=== PATIENT | male | born 1990 | race Caucasian/White ===

== ENCOUNTER 2017-08-18 18:36 | Emergency (ER) | payer SELFPAY ==
[2017-08-18] MEDS ORDERED: ONDANSETRON HCL INJ/PF 4 MG/2 ML SDV IV ONE (20:15)
[2017-08-18] MEDS ORDERED: KETOROLAC TROMETHAMINE INJ/PF 30 MG/1 ML SDV IV ONE (20:15)
[2017-08-18] MEDS ORDERED: NORMAL SALINE 1000 ML 1,000 ML IV ONE (20:16)
--- NOTE | 2017-08-18 20:17 | ER Document Report ---
ED GI/ - General Chief Complaint: Abdominal Pain Stated Complaint: ABDOMINAL PAIN Time Seen by Provider: 08/18/17 19:09 Notes: Patient is a 26-year-old male comes emergency department for chief complaint of pain in his right upper abdomen, pain is intermittent, it is worse with food, he has vomited several times since yesterday. He states he is actually had this over the past couple of years several times and he is unsure of the problem. He takes no daily medications, has had no surgeries. He denies smoking, he drinks occasional alcohol, he denies any alcohol in the past several days. TRAVEL OUTSIDE OF THE [place] IN LAST 30 DAYS: No - Related Data Allergies/Adverse Reactions: No Known Allergies Allergy (Unverified 08/18/17 18:42) Past Medical History - General Information source: Patient - Social History Smoking Status: Never Smoker Frequency of alcohol use: None Drug Abuse: None Lives with: Family Family History: Reviewed & Not Pertinent Patient has suicidal ideation: No Patient has homicidal ideation: No Renal/ Medical History: Denies: Hx Peritoneal Dialysis Surgical Hx: Negative - Immunizations Immunizations up to date: Yes Hx Diphtheria, Pertussis, Tetanus Vaccination: Yes Review of Systems - Review of Systems Constitutional: No symptoms reported EENT: No symptoms reported Cardiovascular: No symptoms reported Respiratory: No symptoms reported Gastrointestinal: See HPI Genitourinary: No symptoms reported Male Genitourinary: No symptoms reported Musculoskeletal: No symptoms reported Skin: No symptoms reported Hematologic/Lymphatic: No symptoms reported Neurological/Psychological: No symptoms reported Physical Exam - Vital signs Vitals: Temp Pulse Resp BP Pulse Ox 99.1 F 96 12 146/93 H 97 08/18/17 18:40 08/18/17 18:40 08/18/17 18:40 08/18/17 18:40 08/18/17 18:40 Interpretation: Normal - General General appearance: Appears well, Alert In distress: None - HEENT Head: Normocephalic, Atraumatic Eyes: Normal Pupils: PERRL - Respiratory Respiratory status: No respiratory distress Chest status: Nontender Breath sounds: Normal Chest palpation: Normal - Cardiovascular Rhythm: Regular. No: Tachycardia Heart sounds: Normal auscultation, S1 appreciated, S2 appreciated Murmur: No - Abdominal Inspection: Normal Distension: No distension Bowel sounds: Normal Tenderness: Tender - Generalized upper abdominal tenderness, no guarding, no rigidity, no rebound tenderness Organomegaly: No organomegaly - Back Back: Normal, Nontender - Extremities General upper extremity: Normal inspection, Nontender, Normal color, Normal ROM , Normal temperature General lower extremity: Normal inspection, Nontender, Normal color, Normal ROM , Normal temperature, Normal weight bearing. No: Rodney's sign - Neurological Neuro grossly intact: Yes Cognition: Normal Orientation: AAOx4 [place] Coma Scale Eye Opening: Spontaneous Gus Coma Scale Verbal: Oriented Gus Coma Scale Motor: Obeys Commands [place] Coma Scale Total: 15 Speech: Normal Motor strength normal: LUE, RUE, LLE, RLE Sensory: Normal - Psychological Associated symptoms: Normal affect, Normal mood - Skin Skin Temperature: Warm Skin Moisture: Dry Skin Color: Normal Course - Re-evaluation Re-evalutation: Patient with minimal tenderness on abdominal evaluation. No guarding. CBC unremarkable, chemistry shows somewhat elevated liver enzymes but normal alkaline phosphate, normal bilirubin, normal lipase. Ultrasound showing fatty infiltration of the liver and cholelithiasis without any evidence of infection or obstruction. Patient is states that his symptoms are actually gone away and he just wants to know what the problem is. He is eating without any difficulty. I discussed the ultrasound in detail. Recommendation is for patient to have surgical clinic follow-up for evaluation and management of cholelithiasis, discussed return precautions in detail with patient and family member, they state understanding and agreement. - Vital Signs Vital signs: Temp Pulse Resp BP Pulse Ox 98.5 F 74 16 124/74 94 08/18/17 22:04 08/18/17 22:04 08/18/17 22:04 08/18/17 22:04 08/18/17 22:04 - Laboratory Result Diagrams: 08/18/17 20:05 08/18/17 20:05 Laboratory results interpreted by me: 08/18/17 20:05 Sodium 145.9 H AST 88 H ALT 165 H Discharge - Discharge Clinical Impression: Upper abdominal pain Cholelithiasis Qualifiers: Cholelithiasis location: gallbladder Cholecystitis presence: without cholecystitis Biliary obstruction: without biliary obstruction Qualified Code(s) : K80.20 - Calculus of gallbladder without cholecystitis without obstruction Condition: Stable Disposition: HOME, SELF-CARE Additional Instructions: You do have gallstones. This is most likely the cause of your intermittent symptoms. Eat a low-fat diet, follow-up closely with the surgical clinic for additional management (see referral listed, call the number). Return to the emergency department if he develop any concerning symptoms including severe pain that will not go away, vomiting, fever, inability to eat, or any other concerning symptoms. You also have some developed fatty substance in your liver, follow-up with primary care for additional management of this. Forms: Return to Work, Treatment of Relative/Child Referrals: [facility] [Provider Group] - 08/21/17
[2017-08-18 20:25] LABS: ABSOLUTE BASOPHILS # (AUTO) 0.1 10^3/uL (0.0-0.2); ABSOLUTE EOSINOPHILS # (AUTO) 0.4 10^3/uL (0.0-0.6); ABSOLUTE LYMPHOCYTES (AUTO) 2.8 10^3/uL (0.5-4.7); ABSOLUTE MONOCYTES (AUTO) 0.4 10^3/uL (0.1-1.4); ABSOLUTE NEUT (AUTO) 4.4 10^3/uL (1.7-8.2); BASOPHILS % (AUTO) 0.9 % (0-2); EOSINOPHILS % (AUTO) 4.8 % (0-6); HEMOGLOBIN 14.6 g/dL (13.5-17.0); HGB HCT DIFFERENCE 0.8; LYMPHOCYTES % (AUTO) 34.6 % (13-45); MEAN CORPUSCULAR HEMOGLOBIN 28.2 pg (27.0-33.4); MEAN CORPUSCULAR VOLUME 83 fl (80-97); MONOCYTES % (AUTO) 5.2 % (3-13); RED BLOOD COUNT 5.18 10^6/uL (4.35-5.55); RED CELL DISTRIBUTION WIDTH 13.6 % (11.5-14.0); SEGMENTED NEUTROPHILS % (AUTO) 54.5 % (42-78); WHITE BLOOD COUNT 8.1 10^3/uL (4.0-10.5)
[2017-08-18 20:46] LABS: ALANINE AMINOTRANSFERASE 165 U/L (21-72); ALBUMIN 4.5 g/dL (3.5-5.0); ALKALINE PHOSPHATASE 75 U/L (38-126); ANION GAP 13 (5-19); ASPARTATE AMINO TRANSFERASE 88 U/L (17-59); BILIRUBIN,DIRECT 0.3 mg/dL (0.0-0.4); BILIRUBIN,TOTAL 0.4 mg/dL (0.2-1.3); BLOOD UREA NITROGEN 11 mg/dL (7-20); CALCIUM 9.6 mg/dL (8.4-10.2); CARBON DIOXIDE 27 mmol/L (22-30); CHLORIDE 106 mmol/L (98-107); CREATININE RESULT 1.01 mg/dL (0.52-1.25); GLUCOSE 105 mg/dL (75-110); LIPASE 68.4 U/L (23-300); POTASSIUM 3.9 mmol/L (3.6-5.0); SODIUM 145.9 mmol/L (137-145); TOTAL PROTEIN 7.3 g/dL (6.3-8.2)
--- NOTE | 2017-08-18 21:04 | RADIOLOGY REPORT (SQ) ---
EXAM DESCRIPTION: U/S ABDOMEN LIMITED W/O DOP COMPLETED DATE/TIME: 08/18/2017 8:54 pm REASON FOR STUDY: ruq pain, vomiting COMPARISON: None. TECHNIQUE: Dynamic and static grayscale images acquired of the abdomen and recorded on PACS. Additio nal selected color Doppler and spectral images recorded. LIMITATIONS: None. FINDINGS: PANCREAS: No masses. No peripancreatic edema or fluid collections. LIVER: Echotexture is coarse with increased echogenicity consistent with fatty infiltration. LIVER VASCULATURE: Normal directional flow of the main portal vein and hepatic veins. GALLBLADDER: Gallstone(s). No pericholecystic fluid. No wall thickening. ULTRASOUND-DETECTED LICEA'S SIGN: Negative. INTRAHEPATIC DUCTS AND COMMON DUCT: CBD and intrahepatic ducts normal caliber. No filling defects. INFERIOR VENA CAVA: Normal flow. AORTA: No aneurysm. RIGHT KIDNEY: Normal size. Normal echogenicity. No solid or suspicious masses. No hydronephrosis. No calcifications. PERITONEAL AND RIGHT PLEURAL SPACE: No ascites or effusions. OTHER: No other significant finding. IMPRESSION: FATTY INFILTRATION OF THE LIVER. CHOLELITHIASIS. OTHERWISE NORMAL RIGHT UPPER QUADRANT ULTRASOUND. TECHNICAL DOCUMENTATION: JOB ID: [id number] [employer]- All Rights Reserved
[2017-08-18] MEDS ORDERED: HYDROCODONE/ACETAMINOPHEN 5-325 MG 6 TAB/DSPK PO PRN (21:27)
[2017-08-18 22:05] VITALS: BP 124/74
== END 2017-08-18 22:07 | disposition home or self-care (01) ==
LOC: ER 18:36
DX: K80.20 Calculus of gallbladder without cholecystitis without obstruction (principal); R10.10 Upper abdominal pain, unspecified; R10.11 Right upper quadrant pain
CPT/HCPCS: 99284; 96361; 96374; 96375; 36415; 83690; 85025; 80053; 76705; J1885; J2405; J7030

== ENCOUNTER 2017-08-30 08:46 | Observation (INO) | payer MEDICAID ==
[~2017-08-30 08:46] MED LIST: ROCURONIUM BROMIDE INJ 50 MG/5 ML VIAL IV ONE; SUCCINYLCHOLINE CHLORIDE INJ 200 MG/10 ML VIAL ONE
--- NOTE | 2017-08-30 09:22 | ER Document Report ---
ED Medical Screen (RME) - General Chief Complaint: Abdominal Pain Stated Complaint: ABDOMINAL PAIN Time Seen by Provider: 08/30/17 09:21 Notes: Patient states he was seen here recently and diagnosed with gallstones. He states the pain is now increased. He is also having vomiting. He also states that he has dysuria. He states due to insurance he was unable to follow-up with surgery. TRAVEL OUTSIDE OF THE [place] IN LAST 30 DAYS: No - Related Data Allergies/Adverse Reactions: No Known Allergies Allergy (Verified 08/30/17 09:11) Past Medical History - Social History Chew tobacco use (# tins/day): No Frequency of alcohol use: None Drug Abuse: None Renal/ Medical History: Denies: Hx Peritoneal Dialysis Past Surgical History: Reports: Hx Appendectomy - Immunizations Immunizations up to date: Yes Hx Diphtheria, Pertussis, Tetanus Vaccination: Yes History of Influenza Vaccine for 08/2017 - 01/2018 Season: No Physical Exam - Vital signs Vitals: Resp 18 08/30/17 09:15 Course - Vital Signs Vital signs: Temp Pulse Resp BP Pulse Ox 18 08/30/17 09:15
[2017-08-30] MEDS ORDERED: NORMAL SALINE 1000 ML 1,000 ML IV ONE ×2 (09:37→10:57)
[2017-08-30 10:49] LABS: ABSOLUTE BASOPHILS # (AUTO) 0.1 10^3/uL (0.0-0.2); ABSOLUTE EOSINOPHILS # (AUTO) 0.3 10^3/uL (0.0-0.6); ABSOLUTE LYMPHOCYTES (AUTO) 2.7 10^3/uL (0.5-4.7); ABSOLUTE NEUT (AUTO) 12.7 10^3/uL (1.7-8.2); BASOPHILS % (AUTO) 0.5 % (0-2); EOSINOPHILS % (AUTO) 1.6 % (0-6); HEMATOCRIT 38.2 % (37.9-51.0); HEMOGLOBIN 13.1 g/dL (13.5-17.0); HGB HCT DIFFERENCE 1.1; LYMPHOCYTES % (AUTO) 16.3 % (13-45); MEAN CORPUSCULAR HEMOGLOBIN 28.2 pg (27.0-33.4); MEAN CORPUSCULAR HGB CONC 34.2 g/dL (32.0-36.0); MEAN CORPUSCULAR VOLUME 82 fl (80-97); RED BLOOD COUNT 4.64 10^6/uL (4.35-5.55); RED CELL DISTRIBUTION WIDTH 13.6 % (11.5-14.0); SEGMENTED NEUTROPHILS % (AUTO) 75.6 % (42-78); WHITE BLOOD COUNT 16.8 10^3/uL (4.0-10.5)
[2017-08-30 10:51] LABS: APPEARANCE,URINE SLIGHTLY-CLOUDY; BILIRUBIN,URINE NEGATIVE (NEGATIVE); GLUCOSE, URINE NEGATIVE (NEGATIVE); KETONES,URINE NEGATIVE (NEGATIVE); LEUKOCYTE ESTERASE,URINE NEGATIVE (NEGATIVE); NITRITE,URINE NEGATIVE (NEGATIVE); PROTEIN,URINE 100 mg/dL (NEGATIVE); URINE SPECIFIC GRAVITY 1.032
[2017-08-30] MEDS ORDERED: ONDANSETRON HCL INJ/PF 4 MG/2 ML SDV IV ONE (10:58)
[2017-08-30] MEDS ORDERED: MORPHINE SULFATE 10 MG/ML INJ IV ONE (10:58)
[2017-08-30 11:01] LABS: ALANINE AMINOTRANSFERASE 74 U/L (21-72); ALKALINE PHOSPHATASE 81 U/L (38-126); ANION GAP 16 (5-19); ASPARTATE AMINO TRANSFERASE 21 U/L (17-59); BILIRUBIN,DIRECT 0.3 mg/dL (0.0-0.4); BILIRUBIN,TOTAL 0.4 mg/dL (0.2-1.3); BLOOD UREA NITROGEN 10 mg/dL (7-20); CALCIUM 8.9 mg/dL (8.4-10.2); CARBON DIOXIDE 25 mmol/L (22-30); CHLORIDE 102 mmol/L (98-107); CREATININE RESULT 0.99 mg/dL (0.52-1.25); GLUCOSE 110 mg/dL (75-110); LIPASE 43.9 U/L (23-300); POTASSIUM 3.4 mmol/L (3.6-5.0); SODIUM 143.3 mmol/L (137-145)
[2017-08-30] MEDS ORDERED: CEFAZOLIN 2 GM/D5W RTU 2 GM/50 ML RTUPB IV ONE (13:32)
--- NOTE | 2017-08-30 13:43 | HISTORY AND PHYSICAL E ---
History and Physical NAME: SHELLY MITCHELL : 1990 AGE: 26Y ADMITTED: 08/30/2017 ROOM: CHIEF COMPLAINT: Abdominal pains. HISTORY OF PRESENT ILLNESS: This is a 26-year-old male complaining of right upper quadrant pains since 08/16/2017. He was seen initially in the emergency room on 08/28/2017 where an ultrasound of the gallbladder showed gallstones. He was discharged from the hospital and asked to go to the surgical clinic, but patient claims that he does not have any insurance and he needs that to go to the clinic. At any rate, his pain has persisted and went to the emergency room today where he was noted to have a white count of 16,000 and is benzol still operator in the right upper quadrant. He had some nausea and vomiting. He is also complaining of dysuria. His LFTs on 08/18 showed AST is 88 and ALT is 165, alkaline phos is normal at 75 and bilirubin direct and total are normal. Lipase normal at 68.4. His white count on 08/18 was normal at 8.1. PAST HISTORY: History of appendectomy. SOCIAL HISTORY: Smokes a pack a day. Denies alcohol or drug use. ALLERGIES: None known. FAMILY HISTORY: Noncontributory. REVIEW OF SYSTEMS: As in HPI. Complaining of headaches. No visual or hearing problems. Occasional cough. No chest pains. GI: As in HPI. Also admits to having some diarrhea. No easy bruisability. Rest of the systems unremarkable. PHYSICAL EXAMINATION: GENERAL: Well-developed, well-nourished 26-year-old male alert and oriented, complaining of abdominal pains. NECK: Supple. No thyromegaly. LUNGS: Clear. HEART: Regular sinus rhythm. ABDOMEN: Soft with tenderness in the right upper quadrant. EXTREMITIES: No edema. IMPRESSION: Acute calculous cholecystitis. PLAN: 1. Start IV antibiotics. 2. Hydrate. 3. Laparoscopic cholecystectomy. DICTATING PHYSICIAN: SAM HUA M.D. [id number] PHY#: [id number] ID: [id number] JOB#: [id number] ACCT: [id number] cc:SAM HUA M.D. NO Francisco HUGO
--- NOTE | 2017-08-30 14:16 | ER Document Report ---
ED General - General Chief Complaint: Abdominal Pain Stated Complaint: ABDOMINAL PAIN Time Seen by Provider: 08/30/17 09:21 TRAVEL OUTSIDE OF THE [place] IN LAST 30 DAYS: No - HPI Patient complains to provider of: Right upper quadrant abdominal pain Notes: Patient coming in for right upper quadrant abdominal pain ongoing for the last few days. Patient states difficulty eating the last 3 days. Patient was recently seen approximately 2 weeks ago had a right upper quadrant ultrasound performed showing cholelithiasis and elevation in LFTs. No white count that time and fever. Patient states no fevers or chills however continues to have nausea vomiting decrease appetite and pain with eating. Patient resting comfortably upon my evaluation denies any history of trauma. - Related Data Allergies/Adverse Reactions: No Known Allergies Allergy (Verified 08/30/17 10:54) Past Medical History - Social History Smoking Status: Current Every Day Smoker Chew tobacco use (# tins/day): No Frequency of alcohol use: None Drug Abuse: None Family History: Reviewed & Not Pertinent Patient has suicidal ideation: No Patient has homicidal ideation: No Renal/ Medical History: Denies: Hx Peritoneal Dialysis Past Surgical History: Reports: Hx Appendectomy - Immunizations Immunizations up to date: Yes Hx Diphtheria, Pertussis, Tetanus Vaccination: Yes Review of Systems - Review of Systems Constitutional: No symptoms reported EENT: No symptoms reported Cardiovascular: No symptoms reported Respiratory: No symptoms reported Gastrointestinal: Abdominal pain Genitourinary: No symptoms reported Male Genitourinary: No symptoms reported Musculoskeletal: No symptoms reported Skin: No symptoms reported Hematologic/Lymphatic: No symptoms reported Neurological/Psychological: No symptoms reported -: Yes All other systems reviewed and negative Physical Exam - Vital signs Vitals: Resp 18 08/30/17 09:15 Interpretation: Normal - General General appearance: Appears well, Alert - HEENT Head: Normocephalic, Atraumatic Eyes: Normal Pupils: PERRL - Respiratory Respiratory status: No respiratory distress Chest status: Nontender Breath sounds: Normal Chest palpation: Normal - Cardiovascular Rhythm: Regular Heart sounds: Normal auscultation Murmur: No - Abdominal Inspection: Normal Distension: No distension Bowel sounds: Normal Tenderness: Tender - Right upper quadrant abdominal pain, Cameron's sign. No: McBurney's point, Guarding, Rebound Organomegaly: No organomegaly - Back Back: Normal, Nontender - Extremities General upper extremity: Normal inspection, Nontender, Normal color, Normal ROM , Normal temperature General lower extremity: Normal inspection, Nontender, Normal color, Normal ROM , Normal temperature, Normal weight bearing. No: Rodney's sign - Neurological Neuro grossly intact: Yes Cognition: Normal Orientation: AAOx4 [place] Coma Scale Eye Opening: Spontaneous Gus Coma Scale Verbal: Oriented Gus Coma Scale Motor: Obeys Commands [place] Coma Scale Total: 15 Speech: Normal Motor strength normal: LUE, RUE, LLE, RLE Sensory: Normal - Psychological Associated symptoms: Normal affect, Normal mood - Skin Skin Temperature: Warm Skin Moisture: Dry Skin Color: Normal Course - Re-evaluation Re-evalutation: 08/30/17 14:59 Patient coming in for evaluation of her upper quadrant abdominal pain. Significant leukocytosis. Discussed with surgeon on-call recommended to keep patient n.p.o. and he will be down to evaluate the patient surgeon exhaust emissions automotive technician Dr. Gil recommend surgery. Patient was admitted to go to the OR. Then notified by nursing staff the patient want to sign out AGAINST MEDICAL ADVICE. Discussion with patient about leaving AGAINST MEDICAL ADVICE could result in certain disability and/or . Patient stated understanding continued with requesting to leave AGAINST MEDICAL ADVICE recommend the patient be given Zofran for omeprazole. However currently was informed by the nursing staff the patient has changes monitored again and is going to stay in the hospital and have surgery done. Dr. Gil has been notified. - Vital Signs Vital signs: Temp Pulse Resp BP Pulse Ox 21 H 120/67 98 08/30/17 11:01 08/30/17 11:00 08/30/17 11:01 - Laboratory Result Diagrams: 08/30/17 10:29 08/30/17 10:29 Laboratory results interpreted by me: 08/30/17 08/30/17 08/30/17 09:38 10:29 10:29 WBC 16.8 H Hgb 13.1 L Absolute Neutrophils 12.7 H Potassium 3.4 L ALT 74 H Urine Protein 100 H Urine Blood SMALL H Urine Urobilinogen 2.0 H Discharge - Discharge Clinical Impression: RUQ abdominal pain Condition: Good Disposition: ADMITTED OBSERVATION Admitting Provider: Surgicalist Fang [facility] Unit Admitted: OR Instructions: Gallbladder Disease ([facility]), Low-Fat Diet ([facility]) Additional Instructions: He has decided to sign out AGAINST MEDICAL ADVICE at this time. Your evaluated by surgical team recommended surgery to remove your gallbladder which more likely is causing your issue. You the patient understands living at this time can result in permanent disability and/or . You The patient appears clinically to have capacity to make this decision. You the patient was instructed that he/she could return to the ER at any time to complete the testing or treatment. Please avoid fatty foods. I will give you medication to help him with nausea. He may take Tylenol and Motrin for pain control. Return to the ER symptoms worsen. Prescriptions: Omeprazole 20 mg PO DAILY #20 capsule. Ondansetron [Zofran Odt 4 mg Tablet] 1 - 2 tab PO Q4H PRN #20 tab.rapdis PRN Reason: For Nausea/Vomiting Forms: Return to Work
[2017-08-30] MEDS ORDERED: PROPOFOL INJ 200 MG/20 ML VIAL IV ONE (16:29)
[2017-08-30] MEDS ORDERED: MIDAZOLAM 2 MG/2 ML INJ ONE (16:29)
[2017-08-30] MEDS ORDERED: ONDANSETRON HCL INJ/PF 4 MG/2 ML SDV ONE (16:29)
[2017-08-30] MEDS ORDERED: FENTANYL CITRATE INJ/PF 100 MCG/2 ML AMPUL ONE (16:29)
[2017-08-30] MEDS ORDERED: DEXAMETHASONE SOD PHOSPHATE INJ 4 MG/1 ML VIAL ONE (16:29)
[2017-08-30] MEDS ORDERED: IBUPROFEN INJ 800 MG/8 ML VIAL IV ONE (16:29)
[2017-08-30] MEDS ORDERED: MORPHINE SULFATE 10 MG/ML INJ ONE (16:30)
[2017-08-30] MEDS ORDERED: BUPIVACAINE HCL 0.25% /EPINEPHRINE INJ/PF 30 ML SDV ONE (16:47)
[2017-08-30] MEDS ORDERED: MEPERIDINE HCL/PF INJ 25 MG/1 ML DISP.SYRIN IV PRN (17:37)
[2017-08-30] MEDS ORDERED: PROMETHAZINE HCL INJ 25 MG/1 ML VIAL IV PRN ×2 (17:37)
[2017-08-30] MEDS ORDERED: FENTANYL CITRATE INJ/PF 100 MCG/2 ML AMPUL IV PRN ×3 (17:37)
[2017-08-30] MEDS ORDERED: DIPHENHYDRAMINE HCL 50 MG/ML VIAL IV PRN (17:37)
[2017-08-30] MEDS ORDERED: OXYCODONE-ACETAMINOPHEN 5-325 MG TABLET PO PRN ×3 (17:37→18:28)
[2017-08-30] MEDS ORDERED: MORPHINE SULFATE 10 MG/ML INJ IV PRN (17:37)
[2017-08-30 19:37] VITALS: BP 116/68
--- NOTE | 2017-08-30 20:28 | OPERATIVE REPORT E ---
Operative Report NAME: SHELLY MITCHELL : 1990 AGE: 26Y DATE OF SURGERY: 08/30/2017 ROOM: 414 PREOPERATIVE DIAGNOSIS: ACUTE CALCULUS CHOLECYSTITIS. POSTOPERATIVE DIAGNOSIS: ACUTE CALCULUS CHOLECYSTITIS. OPERATION: Laparoscopic cholecystectomy. SURGEON: SAM HUA M.D. ESTIMATED BLOOD LOSS: About 10 mL. INDICATIONS: A 26-year-old male with right upper quadrant pains and noted to have gallstones. He has been having these pains for the past few days. Today it was worse, and the white count noted to be elevated to 16,000. DESCRIPTION OF PROCEDURE: After adequate general anesthesia, the patient was placed in supine position and the abdomen prepped and draped in the usual sterile fashion. An appropriate timeout was called. Next, an infraumbilical incision was made and the fascia identified and divided, and a Soraya trocar inserted through the fascia into the abdominal cavity. Three other trocars were placed, a 12 mm in the subxiphoid and two 5 mm in the right upper quadrant. The gallbladder was then identified and noted to be thickened walled. The fundus was grasped and pulled over the liver, and the infundibulum also grasped and pulled outward. Cystic duct was then dissected and isolated, clipped with hemoclips, and divided between hemoclips. Cystic artery also noted and isolated, clipped with hemoclips, and divided with the use of Harmonic adarsh. The gallbladder was taken off the liver bed with the use of Harmonic adarsh. Hemostasis further controlled on the liver bed using coagulation. Adequate hemostasis was noted. The gallbladder was then completely removed from the liver bed and put into the Endobag and pulled out through the umbilical port. The umbilical ports were put back, and further small amount of oozing on the periphery of the liver bed was noted, and this was then controlled with cautery. Adequate hemostasis was then noted. All the trocars were then removed, CO2 allowed to come out of the trocar sites. The fascial defect of the umbilical area was then closed with a [id number] suture using 0 Vicryl, and all the skin incisions closed with running subcuticular closure using 4-0 Vicryl undyed. Sterile dressings placed over the operative site. Needle, instrument, and sponge counts were all correct. Patient brought to the recovery room in satisfactory condition. DICTATING PHYSICIAN: SAM HUA M.D. [id number] PHY#: [id number] ID: [id number] JOB#: [id number] ACCT: [id number] cc:SAM HUA M.D. >
== END 2017-08-30 20:00 | disposition home or self-care (01) ==
LOC: ER 08:46 → EH 14:49 → 4N 19:28
PROC: 0FT44ZZ Resection of Gallbladder, Percutaneous Endoscopic Approach (ICD-10-PCS; principal; 2017-08-30 17:00)
DX: K81.1 Chronic cholecystitis (principal); R30.0 Dysuria; R51 Headache; F17.210 Nicotine dependence, cigarettes, uncomplicated; Z90.49 Acquired absence of other specified parts of digestive tract
CPT/HCPCS: 99285; 96361; 96374; 96375; 36415; 83690; 85025; 80053; 81001; 88304 ×2; 47562; J2250; J3490 ×2; J1100; J3010; J2270; J0330; J2405; J7030; J2704; J0690; J1741; 790

== ENCOUNTER 2018-05-29 08:54 | Emergency (ER) | payer SELFPAY ==
[2018-05-29] MEDS ORDERED: TETRACAINE HCL 0.5% OPH SOLN 2 ML OS ONE (09:32)
--- NOTE | 2018-05-29 09:57 | ER Document Report ---
ED Eye Complaint - General Chief Complaint: Drainage from Eye Stated Complaint: EYE PAIN Time Seen by Provider: 05/29/18 09:16 Mode of Arrival: Ambulatory Information source: Patient Notes: 27-year-old male presents to ED for complaint of swollen eye with green discharge. He states he had some green drainage in his eye is swollen and that he has pain around the eye. I do not see any green drainage there is no matting to the lashes there is no redness to the conjunctivae. Patient is alert and oriented respirations regular and unlabored he does have some sinus nasal congestion swelling and drainage. TRAVEL OUTSIDE OF THE [place] IN LAST 30 DAYS: No - HPI Onset: Yesterday Eye location: Left Injury: No Occurred at: Home Quality of pain: Pressure Severity: Moderate Pain Level: 3 Safety glasses worn: No Contact lenses worn: No Associated symptoms: Burning, Itching, Pain, Blurred vision, Other - States he feels like the eye is swelling - Related Data Allergies/Adverse Reactions: No Known Allergies Allergy (Verified 08/30/17 10:54) Past Medical History - General Information source: Patient - Social History Smoking Status: Current Every Day Smoker Cigarette use (# per day): Yes - Pack per day Chew tobacco use (# tins/day): No Smoking Education Provided: Yes Frequency of alcohol use: Rare Drug Abuse: None Occupation: Manufacturing Lives with: Family Family History: Reviewed & Not Pertinent Patient has suicidal ideation: No Patient has homicidal ideation: No - Past Medical History Cardiac Medical History: Reports: None Pulmonary Medical History: Reports: Hx Asthma EENT Medical History: Reports: None Neurological Medical History: Reports: None Endocrine Medical History: Reports: None Renal/ Medical History: Reports: None Malignancy Medical History: Reports None GI Medical History: Reports: None Musculoskeletal Medical History: Reports None Skin Medical History: Reports Hx MRSA Psychiatric Medical History: Reports: None Traumatic Medical History: Reports: None Infectious Medical History: Reports: Hx MRSA Past Surgical History: Reports: Hx Appendectomy - Immunizations Immunizations up to date: Yes Hx Diphtheria, Pertussis, Tetanus Vaccination: Yes Review of Systems - Review of Systems Constitutional: No symptoms reported EENT: Eye pain, Eye discharge, Blurred vision, Nose discharge, Sinus pressure Cardiovascular: No symptoms reported Respiratory: No symptoms reported Gastrointestinal: No symptoms reported Genitourinary: No symptoms reported Male Genitourinary: No symptoms reported Musculoskeletal: No symptoms reported Skin: No symptoms reported Hematologic/Lymphatic: No symptoms reported Neurological/Psychological: No symptoms reported -: Yes All other systems reviewed and negative Physical Exam - Vital signs Vitals: Temp Pulse Resp BP Pulse Ox 98.6 F 77 14 156/81 H 98 05/29/18 08:58 05/29/18 08:58 05/29/18 08:58 05/29/18 08:58 05/29/18 08:58 Interpretation: Normal - General General appearance: Appears well, Alert - HEENT Head: Normocephalic, Atraumatic Eyes: Tears, Other - Erythema in the upper eyelid minimal swelling Conjunctiva: Normal. No: Icteric, Injected Cornea: No: Corneal ulcer, Dendrite, Embedded foreign body, Flourescein stain uptake, Superficial foreign body Eyelashes: Normal Pupils: PERRL Visual acuity- Right eye: 20/30 Visual acuity- Left eye: 20/70 Visual acuity- Both eyes: 20/30 Corrective lenses worn: No Fundascopic: Normal Visual davis normal: Yes Ears: Normal External canal: Normal Tympanic membrane: Normal Sinus: Normal Nasal: Purulent discharge, Swelling Mouth/Lips: Normal Mucous membranes: Normal Pharynx: Post nasal drainage Neck: Normal - Respiratory Respiratory status: No respiratory distress Chest status: Nontender Breath sounds: Normal Chest palpation: Normal - Cardiovascular Rhythm: Regular Heart sounds: Normal auscultation Murmur: No - Abdominal Inspection: Normal Distension: No distension Bowel sounds: Normal Tenderness: Nontender Organomegaly: No organomegaly - Back Back: Normal, Nontender - Extremities General upper extremity: Normal inspection, Nontender, Normal color, Normal ROM , Normal temperature General lower extremity: Normal inspection, Nontender, Normal color, Normal ROM , Normal temperature, Normal weight bearing. No: Rodney's sign - Neurological Neuro grossly intact: Yes Cognition: Normal Orientation: AAOx4 Gus Coma Scale Eye Opening: Spontaneous [place] Coma Scale Verbal: Oriented [place] Coma Scale Motor: Obeys Commands [place] Coma Scale Total: 15 Speech: Normal Motor strength normal: LUE, RUE, LLE, RLE Sensory: Normal - Psychological Associated symptoms: Normal affect, Normal mood - Skin Skin Temperature: Warm Skin Moisture: Dry Skin Color: Normal Course - Re-evaluation Re-evalutation: 05/29/18 10:[address] Del Valle who came and examined the eye. He recommended Polytrim eyedrops and clindamycin and referral to ophthalmology. Patient was ordered the Polytrim and clindamycin and discharged home with prescription of each and instructed to call the wool puller today to schedule follow-up appointment. - Vital Signs Vital signs: Temp Pulse Resp BP Pulse Ox 98.6 F 77 14 156/81 H 98 05/29/18 08:58 05/29/18 08:58 05/29/18 08:58 05/29/18 08:58 05/29/18 08:58 Discharge - Discharge Clinical Impression: eye lid erythema and swelling Condition: Stable Disposition: HOME, SELF-CARE Additional Instructions: You were seen today for eyelid swelling and redness. EYEDROP USE: Eyedrops are most easily applied by pulling down on the cheek just below the lower eyelid. The lower lid will pop out to form a pouch into which you can drop the medicine. A small brief sting is not unusual, especially if the eye is reddened and irritated already. Use the drops exactly as recommended. You should see the doctor at once if there is a decrease in vision, swelling of the eye, or an increase in discomfort. ANTIBIOTIC THERAPY: You have been given an antibiotic prescription. It's important that you take all the medication, unless instructed otherwise by your physician. Failure to complete the entire course can result in relapse of your condition. Common side effects of antibiotics include nausea, intestinal cramping, or diarrhea. Women may develop vaginal yeast infections, and babies can get yeast (thrush) in the mouth following the use of antibiotics. Contact your physician if you develop significant side effects from this medication. Allergy to this antibiotic can result in hives, wheezing, faintness, or itching. If symptoms of allergy occur, stop the medication and call the doctor. It is very important that you call the wool puller today to schedule a follow-up appointment as soon as possible. FOLLOW-UP CARE: If you have been referred to a physician for follow-up care, call the physician s office for an appointment as you were instructed or within the next two days. If you experience worsening or a significant change in your symptoms, notify the physician immediately or return to the Emergency Department at any time for re-evaluation. Prescriptions: Polymyxin B Sulf/Trimethoprim [Polytrim Eye Drops] 1 drop LFT_EYE Q3HWA #1 bottle Clindamycin HCl 300 mg PO Q6 #28 capsule Forms: Elevated Blood Pressure, Smoking Cessation Education, Return to Work Referrals: DUYEN MUNOZ DO [ACTIVE STAFF] - 05/29/18 (call today to make an appointment )
[2018-05-29] MEDS ORDERED: POLYMYXIN B SULFATE/TMP OPH SOLN (10 ML/ER DISP) OS ONE (10:18)
[2018-05-29] MEDS ORDERED: CLINDAMYCIN HCL 150 MG CAPSULE PO ONE (10:18)
[2018-05-29 10:32] VITALS: BP 131/80
== END 2018-05-29 10:32 | disposition home or self-care (01) ==
LOC: ER 08:54
DX: H57.8 Other specified disorders of eye and adnexa (principal); R60.9 Edema, unspecified; F17.210 Nicotine dependence, cigarettes, uncomplicated
CPT/HCPCS: 99282; J3490

== ENCOUNTER 2018-07-13 10:22 | Emergency (ER) | payer MEDICAID ==
[2018-07-13] MEDS ORDERED: KETOROLAC TROMETHAMINE INJ/PF 30 MG/1 ML SDV IV ONE (10:42)
[2018-07-13] MEDS ORDERED: NORMAL SALINE 1000 ML 1,000 ML IV ONE (10:42)
[2018-07-13] MEDS ORDERED: ONDANSETRON HCL INJ/PF 4 MG/2 ML SDV IV ONE (10:42)
--- NOTE | 2018-07-13 10:45 | ER Document Report ---
ED Medical Screen (RME) - General Chief Complaint: Abdominal Pain Stated Complaint: ABDOMINAL PAIN Time Seen by Provider: 07/13/18 10:37 Notes: 27 years old male presents today with diarrhea nearly 12-13 stools a day for the last 2 days with abdominal cramp and nausea. No vomiting. He has been having this episode frequently almost every month. Has not had any consult with circulation supervisor. Denies any fever chills or other constitutional symptoms. Denies any drug abuse. TRAVEL OUTSIDE OF THE [place] IN LAST 30 DAYS: No - Related Data Allergies/Adverse Reactions: No Known Allergies Allergy (Verified 07/13/18 10:24) Past Medical History - Social History Chew tobacco use (# tins/day): No Frequency of alcohol use: None Drug Abuse: None Pulmonary Medical History: Reports: Hx Asthma Renal/ Medical History: Denies: Hx Peritoneal Dialysis Skin Medical History: Reports Hx MRSA Infectious Medical History: Reports: Hx MRSA Past Surgical History: Reports: Hx Appendectomy, Hx Cholecystectomy - Immunizations Immunizations up to date: Yes Hx Diphtheria, Pertussis, Tetanus Vaccination: Yes History of Influenza Vaccine for 08/2017 - 01/2018 Season: No Physical Exam - Vital signs Vitals: Temp Pulse Resp BP Pulse Ox 99.2 F 103 H 18 124/75 96 07/13/18 10:31 07/13/18 10:31 07/13/18 10:31 07/13/18 10:31 07/13/18 10:31 Course - Vital Signs Vital signs: Temp Pulse Resp BP Pulse Ox 99.2 F 103 H 18 124/75 96 07/13/18 10:31 07/13/18 10:31 07/13/18 10:31 07/13/18 10:31 07/13/18 10:31
[2018-07-13] MEDS ORDERED: PROMETHAZINE HCL INJ 25 MG/1 ML VIAL IV ONE (11:20)
--- NOTE | 2018-07-13 11:20 | ER Document Report ---
ED General - General Chief Complaint: Abdominal Pain Stated Complaint: ABDOMINAL PAIN Time Seen by Provider: 07/13/18 10:37 TRAVEL OUTSIDE OF THE [place] IN LAST 30 DAYS: No - HPI Patient complains to provider of: Nausea diarrhea, abdominal pain Notes: Pleasant 27-year-old male presents with 2 day history of nausea, vomiting, diarrhea and right lower quadrant cramping abdominal pain. The pain is 8/10 cramping in nature without radiation nothing is made it better or worse. Denies fever chills, trauma to his abdomen, any recent travel, any different food. - Related Data Allergies/Adverse Reactions: No Known Allergies Allergy (Verified 07/13/18 10:24) Past Medical History - Social History Smoking Status: Current Every Day Smoker Chew tobacco use (# tins/day): No Frequency of alcohol use: None Drug Abuse: None Family History: Reviewed & Not Pertinent Patient has suicidal ideation: No Patient has homicidal ideation: No Pulmonary Medical History: Reports: Hx Asthma Renal/ Medical History: Denies: Hx Peritoneal Dialysis Skin Medical History: Reports Hx MRSA Infectious Medical History: Reports: Hx MRSA Past Surgical History: Reports: Hx Appendectomy, Hx Cholecystectomy - Immunizations Immunizations up to date: Yes Hx Diphtheria, Pertussis, Tetanus Vaccination: Yes Review of Systems - Review of Systems Notes: REVIEW OF SYSTEMS: CONSTITUTIONAL: -fevers, -chills EENT: -eye pain, -difficulty swallowing, -nasal congestion CARDIOVASCULAR: -chest pain, -syncope. RESPIRATORY: -cough, -SOB GASTROINTESTINAL: +abdominal pain, +nausea, +vomiting, +diarrhea GENITOURINARY: -dysuria, -hematuria MUSCULOSKELETAL: -back pain, -neck pain SKIN: -rash or skin lesions. HEMATOLOGIC: -easy bruising or bleeding. LYMPHATIC: -swollen, enlarged glands. NEUROLOGICAL: -altered mental status or loss of consciousness, -headache, - neurologic symptoms PSYCHIATRIC: -anxiety, -depression. ALL OTHER SYSTEMS REVIEWED AND NEGATIVE. Physical Exam - Vital signs Vitals: Temp Pulse Resp BP Pulse Ox 99.2 F 103 H 18 124/75 96 07/13/18 10:31 07/13/18 10:31 07/13/18 10:31 07/13/18 10:31 07/13/18 10:31 - Notes Notes: PHYSICAL EXAMINATION: GENERAL: Well-appearing, well-nourished and in no acute distress. HEAD: Atraumatic, normocephalic. EYES: Pupils equal round and reactive to light, extraocular movements intact, sclera anicteric, conjunctiva are normal. ENT: nares patent, oropharynx clear without exudates. Moist mucous membranes. NECK: Normal range of motion, supple without lymphadenopathy LUNGS: Breath sounds clear to auscultation bilaterally and equal. No wheezes rales or rhonchi. HEART: Regular rate and rhythm without murmurs ABDOMEN: Soft, nontender, normoactive bowel sounds. No guarding, no rebound. No masses appreciated. EXTREMITIES: Normal range of motion, no pitting or edema. No cyanosis. NEUROLOGICAL: Cranial nerves grossly intact. Normal speech, normal gait. Normal sensory and motor exams. PSYCH: Normal mood, normal affect. SKIN: Warm, Dry, normal turgor, no rashes or lesions noted. Course - Re-evaluation Re-evalutation: 07/13/18 12:07 Well-appearing young man presents with nausea vomiting area for several days. Reassuring physical exam. Patient's urine is concentrated showing signs of dehydration. Sodium a bit up. Patient given 2 L fluid resuscitation emetics. Patient's imaging studies unremarkable, no leukocytosis negative kidney injury. Will be discharged home with antiemetics. Patient's vital signs are all stable within normal limits. Given strict return precautions. - Vital Signs Vital signs: Temp Pulse Resp BP Pulse Ox 97.8 F 94 18 127/74 H 98 07/13/18 11:25 07/13/18 11:25 07/13/18 11:25 07/13/18 11:25 07/13/18 11:25 - Laboratory Result Diagrams: 07/13/18 11:10 07/13/18 11:10 Laboratory results interpreted by me: 07/13/18 07/13/18 11:10 11:10 Sodium 145.6 H Urine Protein 100 H Urine Ketones TRACE H Urine Bilirubin SMALL H Urine Urobilinogen 2.0 H Discharge - Discharge Clinical Impression: Gastroenteritis Condition: Stable Disposition: HOME, SELF-CARE Instructions: Vomiting ([facility]) Prescriptions: Metoclopramide HCl [Reglan 10 mg Tablet] 1 - 2 tab PO ASDIR PRN #25 tablet PRN Reason:
[2018-07-13 11:31] LABS: ABSOLUTE BASOPHILS # (AUTO) 0.1 10^3/uL (0.0-0.2); ABSOLUTE EOSINOPHILS # (AUTO) 0.5 10^3/uL (0.0-0.6); ABSOLUTE LYMPHOCYTES (AUTO) 1.7 10^3/uL (0.5-4.7); ABSOLUTE MONOCYTES (AUTO) 0.6 10^3/uL (0.1-1.4); ABSOLUTE NEUT (AUTO) 7.1 10^3/uL (1.7-8.2); BASOPHILS % (AUTO) 0.6 % (0-2); HEMOGLOBIN 14.5 g/dL (13.5-17.0); MEAN CORPUSCULAR HEMOGLOBIN 27.7 pg (27.0-33.4); MEAN CORPUSCULAR HGB CONC 33.7 g/dL (32.0-36.0); MEAN CORPUSCULAR VOLUME 82 fl (80-97); MONOCYTES % (AUTO) 6.4 % (3-13); PLATELET COUNT 411 10^3/uL (150-450); RED BLOOD COUNT 5.24 10^6/uL (4.35-5.55); RED CELL DISTRIBUTION WIDTH 13.4 % (11.5-14.0); TOTAL CELLS COUNTED % (AUTO) 100 %
[2018-07-13 11:34] LABS: APPEARANCE,URINE SLIGHTLY-CLOUDY; BILIRUBIN,URINE SMALL (NEGATIVE); GLUCOSE, URINE NEGATIVE (NEGATIVE); KETONES,URINE TRACE mg/dL (NEGATIVE); LEUKOCYTE ESTERASE,URINE NEGATIVE (NEGATIVE); NITRITE,URINE NEGATIVE (NEGATIVE); PROTEIN,URINE 100 mg/dL (NEGATIVE); URINE SPECIFIC GRAVITY 1.042
[2018-07-13 11:35] LABS: COLOR,URINE DARK YELLOW
[2018-07-13 11:54] LABS: ALANINE AMINOTRANSFERASE 61 U/L (21-72); ALBUMIN 4.3 g/dL (3.5-5.0); ALKALINE PHOSPHATASE 57 U/L (38-126); ANION GAP 14 (5-19); ASPARTATE AMINO TRANSFERASE 37 U/L (17-59); BILIRUBIN,DIRECT 0.4 mg/dL (0.0-0.4); BILIRUBIN,TOTAL 0.5 mg/dL (0.2-1.3); BLOOD UREA NITROGEN 10 mg/dL (7-20); CALCIUM 9.8 mg/dL (8.4-10.2); CARBON DIOXIDE 26 mmol/L (22-30); CHLORIDE 106 mmol/L (98-107); GLUCOSE 99 mg/dL (75-110); LIPASE 33.7 U/L (23-300); POTASSIUM 4.1 mmol/L (3.6-5.0); SODIUM 145.6 mmol/L (137-145); TOTAL PROTEIN 7.8 g/dL (6.3-8.2)
--- NOTE | 2018-07-13 11:56 | RADIOLOGY REPORT (SQ) ---
EXAM DESCRIPTION: ACUTE ABDOMEN SERIES COMPLETED DATE/TIME: 07/13/2018 11:33 am REASON FOR STUDY: Abdominal pain COMPARISON: None. NUMBER OF VIEWS: Three views. TECHNIQUE: Frontal chest, supine abdomen and upright/decubitus abdomen radiographic images acquired. LIMITATIONS: None. FINDINGS: CHEST: Lungs clear of infiltrates. FREE AIR: None. No abnormal gas collections. BOWEL GAS PATTERN: Nonobstructive pattern. No dilated loops or air fluid levels. CALCIFICATIONS: No suspicious calcifications. HARDWARE: Clips in the upper abdomen. SOFT TISSUES: No gross mass or suggestion of organomegaly. BONES: No acute fracture. No worrisome bone lesions. OTHER: No other significant finding. IMPRESSION: NO RADIOGRAPHIC EVIDENCE FOR ACUTE ABDOMINAL DISEASE. TECHNICAL DOCUMENTATION: JOB ID: [id number] [email or web address] All Rights Reserved Reading location - IP/workstation name: [email or web address]
[2018-07-13 14:12] VITALS: BP 101/62
== END 2018-07-13 14:12 | disposition home or self-care (01) ==
LOC: ER 10:22
DX: K52.9 Noninfective gastroenteritis and colitis, unspecified (principal); R11.2 Nausea with vomiting, unspecified; R10.31 Right lower quadrant pain; J45.909 Unspecified asthma, uncomplicated
CPT/HCPCS: 99284; 96361; 96374; 96375; 36415; 83690; 85025; 80053; 81001; 74022; J1885; J2550; J2405; J7030